=== PATIENT | male | born 1980 | race Caucasian/White ===

== ENCOUNTER 2017-07-30 10:47 | Emergency (ER) | payer BC ==
--- NOTE | 2017-07-30 11:27 | CR ---
EXAMINATION: Right wrist and right hand HISTORY: Pain COMPARISON: None TECHNIQUE: 2 views of the right hand and 2 views of the right wrist FINDINGS: There is no acute osseous abnormality, dislocation, or fracture. Joint spaces and bone mine ralization appear normal. No soft tissue swelling or joint effusion. Radiocarpal alignment is preserved. No focal soft tissue s welling. IMPRESSION: No acute osseous abnormality identified.
--- NOTE | 2017-07-30 11:40 | EDM.PDOC ---
ED HPI GENERAL MEDICAL PROBLEM - General Chief Complaint: Upper Extremity Injury/Pain Stated Complaint: RT HAND HURTS Time Seen by Provider: 07/30/17 11:09 Source of Information: Reports: Patient, Family History Limitations: Reports: No Limitations - History of Present Illness INITIAL COMMENTS - FREE TEXT/NARRATIVE: HISTORY AND PHYSICAL: []36-year-old male presenting with right hand pain and swelling History of Present Illness: []2 days ago patient fell on the ice striking the wrist Pain is increased over the last 2 days of swelling Planning of tingling to his fingers no other symptoms Review of Systems: As per history of present illness and below otherwise all systems reviewed and negative. Past medical history: As per history of present illness and as reviewed below otherwise noncontributory. Surgical history: As per history of present illness and as reviewed below otherwise noncontributory. Social history: No reported history of drug or alcohol abuse. Family history: As per history of present illness and as reviewed below otherwise noncontributory. Physical exam: Alert and oriented male who is answering questions appropriately speaking in full sentences without any shortness of breath HEENT: Atraumatic, normocehpalic, pupils reactive, negative for conjunctival pallor or scleral icterus, mucous membranes moist, throat clear, neck supple, nontender, trachea midline. Lungs: Clear to auscultation, breath sounds equal bilaterally, chest non tender. Heart: S1S2, regular, negative for clicks, rubs, or JVD. Abdomen: Soft, nondistended, nontender. Negative for masses or hepatossplenmegaly. Negative for costovertebral tenderness. Pelvis: Stable nontender. Genitourinary: Deferred. Rectal: Deferred Extremities: Atraumatic, negative for cords or calf pain. Edema noted over the dorsum of his right hand he does have a good radial pulse. Good capillary refill less than 2 seconds to his fingers. Is able to flex and extend fingers without difficulty. Rotating his wrist is not difficult. Neurovascular unremarkable. Neuro: Awake, alert, oriented. Cranial nerves II through XII unremarkable. Cerebellum unremarkable. Motor and sensory unremarkable throughout. Exam nonfocal. Discussed with patient and his that there is no fracture present with place splint on to stabilize the soft tissue injury Diagnostics: [X-ray right hand and wrist] Therapeutics: [Velcro splint] Impression: [Soft tissue injury to the dorsum of his right hand] Plan: []Discharged to home Keep splint on [id number] medications as discussed for anti-inflammatory effect (motrin) Follow-up with your primary care next week Return to the emergency room over the weekend if her symptoms worsen Definitive disposition and diagnosis as appropriate pending reevaluation and review of above. Onset: Gradual Right Hand Pain Score (Numeric/FACES): 6 - Related Data Allergies Allergy/AdvReac Type Severity Reaction Status Date / Time Penicillins Allergy Airway Verified 07/30/17 11:00 Tightness Home Meds: Home Meds . [No Known Home Meds] 01/07/16 [History] Past Medical History - Past Health History Medical/Surgical History: Denies Medical/Surgical History HEENT History: Reports: None Cardiovascular History: Reports: None Respiratory History: Reports: None Gastrointestinal History: Reports: None Genitourinary History: Reports: None Musculoskeletal History: Reports: Fracture, Other (See Below) Other Musculoskeletal History: hx of fx right humerus, and right clavicle, hx of chronic shoulder pain, currently has swelling of right leg Neurological History: Reports: Other (See Below) Other Neuro History: hx of motion sickness Psychiatric History: Reports: None Endocrine/Metabolic History: Reports: Obesity/BMI 30+ Hematologic History: Reports: None Immunologic History: Reports: None Oncologic (Cancer) History: Reports: None Dermatologic History: Reports: None - Infectious Disease History Infectious Disease History: Reports: Chicken Pox - Past Surgical History Head Surgeries/Procedures: Reports: None HEENT Surgical History: Reports: None Cardiovascular Surgical History: Reports: None Respiratory Surgical History: Reports: None Male Surgical History: Reports: None Endocrine Surgical History: Reports: None Oncologic Surgical History: Reports: None Dermatological Surgical History: Reports: None Social & Family History - Family History Family Medical History: Noncontributory - Tobacco Use Smoking Status *Q: Current Every Day Smoker Years of Tobacco use: 20 Packs/Tins Daily: 0.8 - Recreational Drug Use Recreational Drug Use: Yes Drug Use in Last 12 Months: Yes Recreational Drug Type: Reports: Marijuana/Hashish Recreational Drug Use Frequency: Socially Review of Systems - Review of Systems Review Of Systems: ROS reveals no pertinent complaints other than HPI. ED EXAM, GENERAL - Physical Exam Exam: See Below (See dictation) Course - Vital Signs Last Recorded V/S: Last Vital Signs Temp Pulse 89 07/30/17 10:57 Resp 16 07/30/17 10:57 BP 142/85 H 07/30/17 10:57 Pulse Ox 97 07/30/17 10:57 - Orders/Labs/Meds Orders: Active Orders 24 hr Category Date Time Status Splinting [RC] ASDIRECTED Care 07/30/17 11:34 Ordered Departure - Departure Time of Disposition: 11:39 Disposition: Home, Self-Care 01 Condition: Good Clinical Impression: Soft tissue injury of right hand - Discharge Information Referrals: PCP,None [Primary Care Provider] - - My Orders Last 24 Hours: My Active Orders 07/30/17 11:34 Splinting [RC] ASDIRECTED - Assessment/Plan Last 24 Hours: My Active Orders 07/30/17 11:34 Splinting [RC] ASDIRECTED
[2017-07-30 12:21] VITALS: BP 142/85
== END 2017-07-30 12:19 | disposition home or self-care (01) ==
LOC: MW.ED 10:47
DX: S69.91XA Unspecified injury of right wrist, hand and finger(s), initial encounter (principal); Z88.0 Allergy status to penicillin; F17.210 Nicotine dependence, cigarettes, uncomplicated; W00.0XXA Fall on same level due to ice and snow, initial encounter
CPT/HCPCS: 73100-26-RT; 73100-RT; 73120-26-RT; 73120-RT; 99283; 99284

== ENCOUNTER 2018-03-11 21:37 | Emergency (ER) | payer BC ==
[2018-03-11 21:58] VITALS: BP 180/112
[2018-03-11] MEDS ORDERED: Ketorolac 60 MG/2 ML SDV IM ONE (22:20)
[2018-03-11] MEDS ORDERED: Lidocaine 2% Viscous Solution 15 ML Cup PO ONE (22:24)
[2018-03-11] MEDS ORDERED: Benzocaine 20% Topical Spray UD MUCMEM ONE (22:24)
--- NOTE | 2018-03-11 23:16 | EDM.PDOC ---
ED HPI GENERAL MEDICAL PROBLEM - General Chief Complaint: General Stated Complaint: IN SEVER PAIN WITH A BROKEN TOOTH Time Seen by Provider: 03/11/18 21:56 Source of Information: Reports: Patient History Limitations: Reports: No Limitations - History of Present Illness INITIAL COMMENTS - FREE TEXT/NARRATIVE: HISTORY AND PHYSICAL: History of present illness: 37 year are old male presenting to emergency department with chief complaint of left tooth pain starting at 5 PM this evening. Patient states that around 5 PM he began to have acute extreme back left tooth pain. States that the pain is 10 out of 10. He did take a [place] at home that he had leftover from a knee surgery. Did not help. Patient states that he did call Dr. Gallardo, his dentist who gave him a antibiotic which he started today. He denies any associated fever, chills, nausea, vomiting, headache, or respiratory complaints. On exam there is significant cavity and deterioration of the left 18th tooth. There is surrounding erythema and some swelling. Review of systems: As per history of present illness and below otherwise all systems reviewed and negative. Past medical history: As per history of present illness and as reviewed below otherwise noncontributory. Surgical history: As per history of present illness and as reviewed below otherwise noncontributory. Social history: No reported history of drug or alcohol abuse. Family history: As per history of present illness and as reviewed below otherwise noncontributory. Physical exam: see above H&P HEENT: Atraumatic, normocephalic, pupils reactive, negative for conjunctival pallor or scleral icterus, mucous membranes moist, throat clear, neck supple, nontender, trachea midline. Lungs: Clear to auscultation, breath sounds equal bilaterally, chest nontender. Heart: S1S2, regular, negative for clicks, rubs, or JVD. Abdomen: Soft, nondistended, nontender. Negative for masses or hepatosplenomegaly. Negative for costovertebral tenderness. Pelvis: Stable nontender. Genitourinary: Deferred. Rectal: Deferred. Extremities: Atraumatic, negative for cords or calf pain. Neurovascular unremarkable. Neuro: Awake, alert, oriented. Cranial nerves II through XII unremarkable. Cerebellum unremarkable. Motor and sensory unremarkable throughout. Exam nonfocal. Diagnostics: [] Therapeutics: Dental balls Portal 60 mg IM 1 Impression: Dental pain Dental abscess Plan: Patient does have a follow-up appointment with Dr. Gallardo, his dentist on Wednesday. Instructed him to continue taking antibiotics as prescribed by his dentist. Also instructed him to continue using ibuprofen for pain and inflammation. He had significant improvement after dental balls as well as Toradol. He was discharged in good condition with instructions to follow-up with primary care provider as well as his dentist and return ED if any new or worsening symptoms. Definitive disposition and diagnosis as appropriate pending reevaluation and review of above. left lower molar Pain Score (Numeric/FACES): 10 - Related Data Allergies Allergy/AdvReac Type Severity Reaction Status Date / Time Penicillins Allergy Airway Verified 03/11/18 21:59 Tightness Home Meds: Home Meds Antibiotics Fot Broken Tooth 03/11/18 [History] Past Medical History - Past Health History Medical/Surgical History: Denies Medical/Surgical History HEENT History: Reports: None Cardiovascular History: Reports: None Respiratory History: Reports: None Gastrointestinal History: Reports: None Genitourinary History: Reports: None Musculoskeletal History: Reports: Fracture, Other (See Below) Other Musculoskeletal History: hx of fx right humerus, and right clavicle, hx of chronic shoulder pain, currently has swelling of right leg Neurological History: Reports: Other (See Below) Other Neuro History: hx of motion sickness Psychiatric History: Reports: None Endocrine/Metabolic History: Reports: Obesity/BMI 30+ Hematologic History: Reports: None Immunologic History: Reports: None Oncologic (Cancer) History: Reports: None Dermatologic History: Reports: None - Infectious Disease History Infectious Disease History: Reports: Chicken Pox - Past Surgical History Head Surgeries/Procedures: Reports: None HEENT Surgical History: Reports: None Cardiovascular Surgical History: Reports: None Respiratory Surgical History: Reports: None Male Surgical History: Reports: None Endocrine Surgical History: Reports: None Neurological Surgical History: Reports: None Oncologic Surgical History: Reports: None Dermatological Surgical History: Reports: None Social & Family History - Family History Family Medical History: Noncontributory - Tobacco Use Smoking Status *Q: Current Every Day Smoker Years of Tobacco use: 10 Packs/Tins Daily: 0.5 - Caffeine Use Caffeine Use: Reports: Coffee, Energy Drinks, Soda - Recreational Drug Use Recreational Drug Use: No ED ROS GENERAL - Review of Systems Review Of Systems: ROS reveals no pertinent complaints other than HPI. ED EXAM, GENERAL - Physical Exam Exam: See Below Course - Vital Signs Last Recorded V/S: Last Vital Signs Temp 96.7 F 03/11/18 21:53 Pulse 53 L 03/11/18 21:53 Resp 18 03/11/18 21:53 BP 180/112 H 03/11/18 21:53 Pulse Ox 96 03/11/18 21:53 - Orders/Labs/Meds Meds: Medications Discontinued Medications Generic Name Dose Route Start Last Admin Trade Name Bran PRN Reason Stop Dose Admin Benzocaine 2 each 03/11/18 22:24 03/11/18 22:32 Hurricaine One 20% MUCMEM 03/11/18 22:25 2 each ONETIME ONE Administration Ketorolac Tromethamine 60 mg 03/11/18 22:20 03/11/18 22:32 Toradol IM 03/11/18 22:21 60 mg ONETIME ONE Administration Lidocaine HCl 15 ml 03/11/18 22:24 03/11/18 22:32 Xylocaine 2% Viscous PO 03/11/18 22:25 15 ml ONETIME ONE Administration Departure - Departure Time of Disposition: 23:20 Disposition: Home, Self-Care 01 Condition: Good Clinical Impression: Pain, dental, Dental abscess - Discharge Information Referrals: PCP,None [Primary Care Provider] - Forms: ED Department Discharge Additional Instructions: My general discharge The following information is given to patients seen in the emergency department who are being discharged to home. This information is to outline your options for follow-up care. We provide all patients seen in our emergency department with a follow-up referral. The need for follow-up, as well as the timing and circumstances, are variable depending upon the specifics of your emergency department visit. If you don't have a primary care physician on staff, we will provide you with a referral. We always advise you to contact your personal physician following an emergency department visit to inform them of the circumstance of the visit and for follow-up with them and/or the need for any referrals to a consulting specialist. The emergency department will also refer you to a specialist when appropriate. This referral assures that you have the opportunity for follow-up care with a specialist. All of these measure are taken in an effort to provide you with optimal care, which includes your follow-up. Under all circumstances we always encourage you to contact your private physician who remains a resource for coordinating your care. When calling for follow-up care, please make the office aware that this follow-up is from your recent emergency room visit. If for any reason you are refused follow-up, please contact the [facility] Emergency Department at and asked to speak to the emergency department charge nurse. Please follow-up with dentist as scheduled. Take medication as prescribed. Return to the emergency department if any new or worsening symptoms.
== END 2018-03-11 23:25 | disposition home or self-care (01) ==
LOC: MW.ED 21:37
DX: K04.7 Periapical abscess without sinus (principal); Z88.0 Allergy status to penicillin; F17.210 Nicotine dependence, cigarettes, uncomplicated
CPT/HCPCS: 96372; 99282; A9270; J1885

== ENCOUNTER 2019-03-08 08:44 | Emergency (ER) | payer BC ==
[2019-03-08 08:55] VITALS: BP 142/91; PULSE 73
--- NOTE | 2019-03-08 09:09 | EDM.PDOC ---
ED HPI GENERAL MEDICAL PROBLEM - General Chief Complaint: Lower Extremity Injury/Pain Stated Complaint: RIGHT FOOT PAIN Time Seen by Provider: 03/08/19 08:52 Source of Information: Reports: Patient History Limitations: Reports: No Limitations - History of Present Illness INITIAL COMMENTS - FREE TEXT/NARRATIVE: History of present illness: []Patient was wrestling with a friend yesterday and hurt his knee pop with sudden pain while twisting. He has had a torn meniscus in the past and says it feels the same. Review of systems: As per history of present illness and below otherwise all systems reviewed and negative. Past medical history: As per history of present illness and as reviewed below otherwise noncontributory. Surgical history: As per history of present illness and as reviewed below otherwise noncontributory. Social history: No reported history of drug or alcohol abuse. Family history: As per history of present illness and as reviewed below otherwise noncontributory. Physical exam: General: Well developed, well nourished in NAD HEENT: Atraumatic, normocephalic, pupils reactive, negative for conjunctival pallor or scleral icterus, mucous membranes moist, throat clear, neck supple, nontender, trachea midline. Lungs: Clear to auscultation, breath sounds equal bilaterally, chest nontender. Heart: S1S2, regular, negative for clicks, rubs, or JVD. Abdomen: NABS, Soft, nondistended, nontender. Negative for masses or hepatosplenomegaly. Negative for costovertebral tenderness. Pelvis: Stable nontender. Genitourinary: Deferred. Rectal: Deferred. Extremities: Atraumatic, negative for cords or calf pain. Neurovascular unremarkable. Neuro: Awake, alert, oriented. Cranial nerves II through XII unremarkable. Cerebellum unremarkable. Motor and sensory unremarkable throughout. Exam nonfocal. Skin:warm and dry Diagnostics: X-ray right knee shows a small effusion Therapeutics: Immobilizer ED Course: sTable Impression: Internal derangement of knee Prescriptions: None Plan: Follow with orthopedic today at 1:30 as previously scheduled. Definitive disposition and diagnosis as appropriate pending reevaluation and review of above. right knee Pain Score (Numeric/FACES): 5 - Related Data Allergies Allergy/AdvReac Type Severity Reaction Status Date / Time Penicillins Allergy Airway Verified 03/08/19 08:54 Tightness Home Meds: Home Meds . [No Known Home Meds] 03/08/19 [History] Past Medical History - Past Health History Medical/Surgical History: Denies Medical/Surgical History HEENT History: Reports: None Cardiovascular History: Reports: None Respiratory History: Reports: None Gastrointestinal History: Reports: None Genitourinary History: Reports: None Musculoskeletal History: Reports: Fracture, Other (See Below) Other Musculoskeletal History: hx of fx right humerus, and right clavicle, hx of chronic shoulder pain, currently has swelling of right leg Neurological History: Reports: Other (See Below) Other Neuro History: hx of motion sickness Psychiatric History: Reports: None Endocrine/Metabolic History: Reports: Obesity/BMI 30+ Hematologic History: Reports: None Immunologic History: Reports: None Oncologic (Cancer) History: Reports: None Dermatologic History: Reports: None - Infectious Disease History Infectious Disease History: Reports: Chicken Pox - Past Surgical History Head Surgeries/Procedures: Reports: None HEENT Surgical History: Reports: None Cardiovascular Surgical History: Reports: None Respiratory Surgical History: Reports: None Male Surgical History: Reports: None Endocrine Surgical History: Reports: None Neurological Surgical History: Reports: None Oncologic Surgical History: Reports: None Dermatological Surgical History: Reports: None Social & Family History - Family History Family Medical History: Noncontributory - Tobacco Use Smoking Status *Q: Current Every Day Smoker Years of Tobacco use: 20 Packs/Tins Daily: 0.8 - Caffeine Use Caffeine Use: Reports: Soda - Recreational Drug Use Recreational Drug Use: Yes Recreational Drug Type: Reports: Marijuana/Hashish Recreational Drug Use Frequency: Socially Review of Systems - Review of Systems Review Of Systems: See Below ED EXAM, GENERAL - Physical Exam Exam: See Below Course - Vital Signs Last Recorded V/S: Last Vital Signs Temp 96.8 F 03/08/19 08:52 Pulse 73 03/08/19 08:52 Resp 18 03/08/19 08:52 BP 142/91 H 03/08/19 08:52 Pulse Ox 95 03/08/19 08:52 - Orders/Labs/Meds Orders: Active Orders 24 hr Category Date Time Status Splinting [RC] ASDIRECTED Care 03/08/19 10:09 Active Departure - Departure Time of Disposition: 10:13 Disposition: Home, Self-Care 01 Condition: Good Clinical Impression: Internal derangement of right knee - Discharge Information *PRESCRIPTION DRUG MONITORING PROGRAM REVIEWED*: No *COPY OF PRESCRIPTION DRUG MONITORING REPORT IN PATIENT JANELL: No Referrals: Kevin Babcock MD [Primary Care Provider] - Forms: ED Department Discharge Additional Instructions: The following information is given to patients seen in the emergency department who are being discharged to home. This information is to outline your options for follow-up care. We provide all patients seen in our emergency department with a follow-up referral. The need for follow-up, as well as the timing and circumstances, are variable depending upon the specifics of your emergency department visit. If you don't have a primary care physician on staff, we will provide you with a referral. We always advise you to contact your personal physician following an emergency department visit to inform them of the circumstance of the visit and for follow-up with them and/or the need for any referrals to a consulting specialist. The emergency department will also refer you to a specialist when appropriate. This referral assures that you have the opportunity for follow-up care with a specialist. All of these measure are taken in an effort to provide you with optimal care, which includes your follow-up. Under all circumstances we always encourage you to contact your private physician who remains a resource for coordinating your care. When calling for follow-up care, please make the office aware that this follow-up is from your recent emergency room visit. If for any reason you are refused follow-up, please contact the [facility] Emergency Department at and asked to speak to the emergency department charge nurse. Take meds as directed, follow up with your primary care physician, return to ER if symptoms worsen or change. [facility] Professional Building [address] [place] [address], [address] [place] [address] - My Orders Last 24 Hours: My Active Orders 03/08/19 10:09 Splinting [RC] ASDIRECTED - Assessment/Plan Last 24 Hours: My Active Orders 03/08/19 10:09 Splinting [RC] ASDIRECTED
--- NOTE | 2019-03-08 09:51 | CR ---
Indication: Pain. Technique: Right knee 3 views Comparison: Right knee radiographs 01/07/2016 Findings: No acute fracture or dislocation. The patella is normally aligned. Joint spaces are well preserved. No significant degenerative changes. Tiny knee joint effusion. Soft tissues are unremarkable. Impression: Tiny knee joint effusion. No other acute findings. Dictated by Margaux Alvares MD @ Mar 08 2019 9:47AM Signed by Dr. Margaux Alvares @ Mar 08 2019 9:49AM
== END 2019-03-08 10:23 | disposition home or self-care (01) ==
LOC: MW.ED 08:44
DX: M23.91 Unspecified internal derangement of right knee (principal); Z88.0 Allergy status to penicillin; X50.9XXA Other and unspecified overexertion or strenuous movements or postures, initial encounter
CPT/HCPCS: 73562-26-RT; 73562-RT; 99283; 99283-25